=== PATIENT | female | born 1980 | race African-American/Black ===

== ENCOUNTER 2017-05-09 21:01 | Emergency (ER) | payer OTHER | END 2017-05-09 22:42 | disposition home or self-care (01) | LOC: ERS 21:01 | DX: K04.7 Periapical abscess without sinus (principal); J45.909 Unspecified asthma, uncomplicated; E78.5 Hyperlipidemia, unspecified; G43.909 Migraine, unspecified, not intractable, without status migrainosus; F17.210 Nicotine dependence, cigarettes, uncomplicated | CPT/HCPCS: 99282 ==

== ENCOUNTER 2017-07-05 16:21 | Emergency (ER) | payer OTHER ==
[2017-07-05] MEDS ORDERED: Ketorolac Tromethamine 30 MG/ML VIAL ONE (17:59)
== END 2017-07-05 18:21 | disposition home or self-care (01) ==
LOC: ERS 16:21
DX: M19.042 Primary osteoarthritis, left hand (principal); M19.041 Primary osteoarthritis, right hand; E05.90 Thyrotoxicosis, unspecified without thyrotoxic crisis or storm; J45.909 Unspecified asthma, uncomplicated; G43.909 Migraine, unspecified, not intractable, without status migrainosus; F31.9 Bipolar disorder, unspecified; F41.9 Anxiety disorder, unspecified; F17.210 Nicotine dependence, cigarettes, uncomplicated
CPT/HCPCS: 96372; J1885

== ENCOUNTER 2017-07-26 17:06 | Inpatient (IN) | payer OTHER, SELFPAY ==
[~2017-07-26 17:06] MED LIST: ISOVUE-370 76%-LOCM 1 ML ONE
[2017-07-26 17:41] LABS: #Basophils 0.1 thou/uL (0.0-0.2); #Lymphocytes 1.8 thou/uL (1.20-3.40); #Monocytes 0.9 thou/uL (0.11-0.59); #Neutrophils 10.8 thou/uL (1.40-6.50); %Basophils 0.5 % (0.0-1.0); %Eosinophils 0.1 % (0.0-10.0); %Lymphocytes 13.4 % (21.0-51.0); %Monocytes 6.3 % (0.0-10.0); %Neutrophils 79.8 % (42.0-75.0); Hemoglobin 11.4 g/dL (12.0-16.0); Mean Corpuscular HGB CONC 33.3 g/dL (32.0-36.0); Mean Corpuscular Hemoglobin 30.8 pg (27.0-31.0); Mean Corpuscular Volume 92.6 fl (81.0-99.0); Mean Platelet Volume 6.9 fL (7.4-10.4); Platelet Count 393 thou/uL (130-400); RBC Distribution Width 11.5 % (11.5-14.5); Red Blood Cell (RBC) Count 3.72 mill/uL (4.20-5.40); White Blood Cell (WBC) Count 13.5 thou/uL (4.8-10.8)
[2017-07-26 17:43] LABS: Bilirubin Negative (Negative); Blood, Urine Large (Negative); Clarity CLOUDY (Clear); Glucose, Urine (Dipstick) Negative (Negative); Leukocyte Small (Negative); Nitrite Negative (Negative); Protein, Urine (Dipstick) 30 mg/dL (Neg-Trace); Specific Gravity, Urine 1.023 (1.002-1.036); pH, Urine 6.5 (5.0-9.0)
[2017-07-26 17:45] LABS: Bacteria/HPF Rare-Few HPF (None Seen); Pathc Cast-AUWi Flag 1.35 (0-2.49)
[2017-07-26 17:46] LABS: Pregnancy Test - Urine (BHCG) Negative (Negative); Pregu Control Background? CLEAR/WHITE (CLR/WHITE); Pregu Control Bar Appear? YES (CONTROL BAR); Specific Gravity 1.023 (1.002-1.036); Yeast-AUWi Flag 124.5 (0-25.0)
[2017-07-26 17:54] LABS: Hyaline Casts/LPF 0-3 HYALINE CAST LPF (0-3 Hyaline); RBC/HPF 21-50 HPF (0-3); Renal Epithelial None Seen HPF (0-3); Transitional Epithelial NONE SEEN HPF (0-3); Yeast-All Forms None Seen HPF (None Seen)
[2017-07-26 18:08] LABS: ALT (SGPT) 14 U/L (8-55); AST (SGOT) 17 U/L (5-34); Albumin 3.8 g/dL (3.5-5.0); Alkaline Phosphatase 87 U/L (40-150); Anion Gap 10 mmol/L (10-20); BUN (Urea Nitrogen) 6 mg/dL (7.0-18.7); Bilirubin, Total 0.9 mg/dL (0.2-1.2); Calc. Creatinine Clearance 0 mL/min (70-130); Calcium 9.3 mg/dL (7.8-10.44); Carbon Dioxide 29 mmol/L (22-29); Chloride 99 mmol/L (98-107); Estimated GFR-MDRD Greater than 90; Globulin 3.9 g/dL (2.4-3.5); Glucose 99 mg/dL (70-105); Potassium 3.3 mmol/L (3.5-5.1); Protein, Total 7.7 g/dL (6.0-8.3); Sodium 135 mmol/L (136-145)
[2017-07-26] MEDS ORDERED: Potassium Chloride 20 MEQ TAB ONE (19:38)
[2017-07-26] MEDS ORDERED: Magnesium Citrate 300 ML BOT ONE (19:38)
[2017-07-26] MEDS ORDERED: metroNIDAZOLE 500 MG in Premix Bag 1 BAG IVPB SCH (22:00)
--- NOTE | 2017-07-26 22:01 | PDOC.EVN ---
Event Note - Event Note Event Note: [employer]SE History and Physical @2200: Called by ER for admission for possible TOAs HPI: 36 yo with prior CS x3 (no BTL) presents to ED with C/O LAP. No fever or issues. CT in ER by ER MD revealed possible 3cm bilateral TOAs. Review of systems: states ? HX of seizures but not on meds, possible CHTN as well. Asthma. Possible hyperthyroidism. Allergies: NONE Past med HX: "SZ" in past, hyperthyroid but not on meds. Asthma- on MDI Meds: only asthma MDIs. Surg Hx: CS x3 PE: Afebrile in ER NAD Abd soft NT no dsch reported Labs with 13 WBC, UA with small LE GC/CHL PCR pending Urine culture pending Pelvic sono pending Influ screen negative. Assessment: Possible bilateral TOAs on CT..exam benign. Plan: Admit to [employer] floor with: 1. GC/Chl requested by me from ER provider 2. Send Urine culture 3. Check TSH for questionable HX 4. IV Rocephin and Zmax 1 gram po X1 to be given in ED, then continue ABX with Rocephin, doxy and flagyl 5. Get pelvic sono 6. IVFs
--- NOTE | 2017-07-26 22:02 | CT ---
CT ABDOMEN AND PELVIS WITH IV CONTRAST 07/26/17 HISTORY: Abdominal pain and constipation which has worsened over the last four days. Patient unable to eat ove r the last two days and has nausea. COMPARISON: Noncontrast CT abdomen and pelvis on 06/15/13. FINDINGS: There are two hypodense lesions within the posterior segment of the right hepatic lobe measuring 1.8 cm and 1.2 cm respectively. Each of these lesions demonstrate suggestion of peripheral nodular and di scontinuous enhancement are probably related to small hemangiomas. However, these lesions were not mu ch smaller in size on the prior study in 2013 and were not well seen on the prior noncontrasted CT ex am. There is a tiny subcentimeter too small to characterize hypodense lesion more inferior aspect of the right hepatic lobe. The lung bases, spleen, pancreas, bilateral adrenal glands, kidneys, abdominal aorta, and urinary isaura dder demonstrate a normal CT appearance. There is a heterogeneous mass in the uterine fundus measuring 3.3 cm probably related to a uterine fi broid. Posterior to the uterus and each adnexal region, there are tubular low density serpiginous str uctures with enhancement of the schultz of these structures. The largest dilated tubular structure virginia ures approximately 3 cm in diameter. There is mild inflammatory stranding seen in the region of these tubular collections, again, majority of which are posterior to the uterus in the region of the cul-d e-sac. The findings may be related to bilateral tubo-ovarian abscesses. The appendix is visualized and normal in caliber. A moderate amount of retained fecal material is se en in the colon. IMPRESSION: 1. Evidence for bilateral tubo-ovarian abscesses. While findings could be related to hydrosalpin x, the schultz of these tubular structures do demonstrate mild enhancement and there is mild adjacent i nflammatory stranding in the pelvis. This does not appear to represent complex cystic ovarian lesions . 2. Heterogeneous mass uterine fundus likely related to fibroid uterus. 3. Low density lesions in the right hepatic lobe most likely related to mild enlargement of kayla ngiomas since study in 2013. However, to confirm these low density lesions represent hemangiomas, a f ollowup CT scan examination of the abdomen following hemangioma protocol is recommended. 4. Constipation. 5. Above findings discussed with Dr. Rodriguez in the Emergency Department on 07/26/17 at 2107 hour s. POS: [facility]
[2017-07-26] MEDS ORDERED: Ketorolac Tromethamine 30 MG/ML VIAL ONE ×3 (23:03→23:06)
[2017-07-26] MEDS ORDERED: Azithromycin 250 MG TAB ONE ×2 (23:05→23:24)
--- NOTE | 2017-07-26 23:22 | ULT ---
PELVIC ULTRASOUND 07/26/17 HISTORY: Pelvic pain for five days, nausea and constipation. Abnormal CT examination. FINDINGS: Multiple transabdominal and endovaginal sonographic images of the pelvis are obtained. The uterus measures 10.6 cm x 5 cm x 6.3 cm. There is a heterogeneous mass in the uterine fundus virginia uring 2.3 cm likely related to a uterine fibroid. The endometrial strip measures 0.9 cm in thickness. The ovaries are difficult to definitely visualize as there is a tubular anechoic structure with inte rnal echogenic material seen within the right adnexal region and a complex mass-like structure within the left adnexal region. What is thought to be the right ovary measures 4 cm x 1.9 cm x 2.3 cm. The left ovary is enlarged with several cystic structures seen measuring 7.1 cm x 4.1 cm x 6.9 cm. Findin gs on recent CT scan examination demonstrated this complex cystic structure to appear to represent a tubular fluid filled structure, the findings may be related to bilateral tubo-ovarian abscesses as no jaylan on the CT scan examination. One of the cystic structures within the left adrenal region has compl ex internal echogenic material and measures 3.3 cm in maximal dimension. Doppler evaluation of each ovary with spectral analysis and color flow evaluation does demonstrate ar terial flow. Tiny amount of free fluid is seen adjacent to the presumed right fallopian tube. IMPRESSION: 1. Complex multicystic appearing structure in left adnexal region which corresponds to findings on CT exam. However, there were findings on CT examination which suggested a dilated tubular structur e which could be related to pyosalpinx and tubo-ovarian abscess in the left adnexal region. There is a dilated tubular structure in the right adnexal region also which may be related to tubo-ovarian abs cess. 2. Uterine fibroid. POS: [facility]
--- NOTE | 2017-07-26 23:30 | PDOC.EVN ---
Event Note - Event Note Event Note: WET PREP CHECK: Lab returned with positive trich and BV on VP3 test. Flagyl ordered as part of her IV therapy already. Will order HIV and RPR
[2017-07-27 00:10] LABS: HIV (1/2) Antibody/Antigen Non-Reactive (NonReactive); HIV 1/2 INDEX 0.07 S/CO (<1.00)
[2017-07-27 00:11] LABS: Syphilis Antibody Nonreactive (Nonreactive); Syphilis Antibody Index 0.08 S/CO (<1.00 Non-Reactive)
--- NOTE | 2017-07-27 00:57 | PDOC.EVN ---
Event Note - Event Note Event Note: Lab check: HIV and RPR negative. TSH low at 0.2. She has a HX of hyperthyroidism...not on meds.Needs endo follow up.
--- NOTE | 2017-07-27 00:59 | PDOC.EVN ---
Event Note - Event Note Event Note: Sono with Ut fibroid and L>R evidence of possible TOA. Continue antibiotics
[2017-07-27] MEDS: cefTRIAXone\\ROCEPHIN 2 GM in Sodium Chloride 0.9% 100 ML IVPB SCH ×2 (01:26→22:07)
[2017-07-27] MEDS ORDERED: Sodium Chloride 0.9% 10 ML ONE (01:31)
[2017-07-27] MEDS: Lactated Ringer's 1,000 ML IV SCH ×4 (01:35→22:21)
[2017-07-27] MEDS: metroNIDAZOLE 500 MG in Premix Bag 1 BAG IVPB SCH ×3 (01:36→18:41)
[2017-07-27 02:25] VITALS: BMI 21.4
[2017-07-27] MEDS: Ibuprofen 800 MG TAB PO PRN ×2 (04:41→14:04)
--- NOTE | 2017-07-27 06:24 | PDOC.EVN ---
Event Note - Event Note Event Note: @0620: Progress Note HD0 to 1 No new issues Vitals: afebrile and normotensive GC/CHL pending Free t4 was normal Meds: Rocephin/doxy/flagyl Assessment/Plan: Suspected bilateral TOAs, Trich on VP3 1. continue antibiotics 2. Check Gc/Chl 3. Free T4 is normal so only subclinicaly hyperthyroidism (low tsh)
[2017-07-27] MEDS: Doxycycline 100 MG CAP PO SCH ×2 (09:28→22:07)
[2017-07-27] MEDS ORDERED: HYDROcodone/Acetaminophen 7.5/325 mg Tablet PO PRN (21:45)
[2017-07-27] MEDS ORDERED: diphenhydrAMINE 50 MG/ML VIAL IVP SCH (22:00)
[2017-07-27] MEDS: HYDROcodone/Acetaminophen 5/325 mg Tablet PO PRN (22:06)
[2017-07-28] MEDS: metroNIDAZOLE 500 MG in Premix Bag 1 BAG IVPB SCH ×3 (03:20→18:10)
[2017-07-28 03:21] LABS: Chlamydia by PCR Not Detected (NotDetected); GC by PCR Not Detected (NotDetected)
[2017-07-28 05:56] LABS: #Monocytes 0.9 thou/uL (0.11-0.59); #Neutrophils 9.4 thou/uL (1.40-6.50); %Basophils 0.1 % (0.0-1.0); %Eosinophils 0.1 % (0.0-10.0); %Lymphocytes 8.9 % (21.0-51.0); %Monocytes 7.9 % (0.0-10.0); Hemoglobin 9.5 g/dL (12.0-16.0); Mean Corpuscular HGB CONC 32.9 g/dL (32.0-36.0); Mean Corpuscular Hemoglobin 30.5 pg (27.0-31.0); Mean Corpuscular Volume 92.9 fl (81.0-99.0); Mean Platelet Volume 7.1 fL (7.4-10.4); Platelet Count 354 thou/uL (130-400); RBC Distribution Width 11.7 % (11.5-14.5); White Blood Cell (WBC) Count 11.3 thou/uL (4.8-10.8)
--- NOTE | 2017-07-28 06:55 | PRG ---
DATE OF SERVICE: 07/28/2017 SUBJECTIVE: The patient is a 36-year-old female who presented approximately 24 hours ago with abdomi nal pain and was noted on evaluation to have what appears to be bilateral tubo-ovarian abscesses on u ltrasound and CT scan. The patient was placed on antibiotics, Rocephin, doxycycline, and Flagyl. Th e patient reports this morning that her pain has improved some. She denies any subjective fevers. PHYSICAL EXAMINATION: VITAL SIGNS: Temperature 99.2, pulse of 88, respiratory rate of 18. Her T-max over the last 24 hour s is 99.2. GENERAL: She appears to be in no acute distress. She is alert and oriented, and cooperative and ple asant to interact with. HEENT: Normocephalic, atraumatic. ABDOMEN: Soft, but tender to light and deep palpation. LABORATORY STUDIES: CBC today, white count 11.3, hemoglobin 9.5, hematocrit 28.8, platelets of 354,0 00. There is a left shift of 83% neutrophils. GC and chlamydia are back and are negative. ASSESSMENT AND PLAN: The patient is a 36-year-old female diagnosed with bilateral tubo-ovarian absce sses, positive for Trichomonas and BV, negative for gonorrhea and chlamydia. She has been on antibio tics for now 24 hours and is having some subjective improvement in her pain. We will continue antibi otics for at least another 24 hours and at that time likely we will reevaluate by ultrasound on the p rogress of these pelvic structures.
[2017-07-28] MEDS: Lactated Ringer's 1,000 ML IV SCH ×3 (07:19→23:28)
[2017-07-28] MEDS: Doxycycline 100 MG CAP PO SCH ×2 (09:41→21:30)
[2017-07-28] MEDS: HYDROcodone/Acetaminophen 5/325 mg Tablet PO PRN (12:21)
[2017-07-28] MEDS: Ibuprofen 800 MG TAB PO PRN (12:22)
[2017-07-28] MEDS ORDERED: PROVENTIL INHALER 6.7 G (200 INHALATIONS) INH PRN (12:44)
[2017-07-28] MEDS ORDERED: Ondansetron HCl/PF 4 MG in Sodium Chloride 0.9% 50 ML IVPB PRN (20:19)
[2017-07-28] MEDS ORDERED: Sodium Chloride 0.9% 10 ML ONE (20:33)
[2017-07-28] MEDS: Ondansetron HCl/PF 4 MG/2 ML Vial SLOW IVP PRN (20:38)
[2017-07-28] MEDS: cefTRIAXone\\ROCEPHIN 2 GM in Sodium Chloride 0.9% 100 ML IVPB SCH (23:29)
[2017-07-29] MEDS: metroNIDAZOLE 500 MG in Premix Bag 1 BAG IVPB SCH (02:35)
[2017-07-29] MEDS: Lactated Ringer's 1,000 ML IV SCH ×2 (03:10→06:11)
[2017-07-29] MEDS: Ibuprofen 800 MG TAB PO PRN ×2 (06:14→17:19)
[2017-07-29 07:59] LABS: Band 9 % (5-11); Hemoglobin 8.8 g/dL (12.0-16.0); Lymphocytes 14 % (21-51); MDiff Complete? YES; Mean Corpuscular HGB CONC 31.9 g/dL (32.0-36.0); Mean Corpuscular Hemoglobin 29.6 pg (27.0-31.0); Mean Corpuscular Volume 92.7 fl (81.0-99.0); Mean Platelet Volume 6.9 fL (7.4-10.4); Monocytes 6 % (0-10); Neutrophil 71 % (42-75); Platelet Count 357 thou/uL (130-400); RBC Distribution Width 11.7 % (11.5-14.5); Red Blood Cell (RBC) Count 2.97 mill/uL (4.20-5.40)
[2017-07-29] MEDS: Ondansetron HCl/PF 4 MG/2 ML Vial SLOW IVP PRN ×2 (08:35→20:20)
--- NOTE | 2017-07-29 08:52 | PRG ---
DATE OF SERVICE: 07/29/2017 SUBJECTIVE: This patient is a 36-year-old black female who was admitted almost 48 hours ago with abd ominal pain from the ER. Imaging there both by CT and then by ultrasound was consistent with bilater al tubo-ovarian abscesses. Since that time, she has been placed on IV Rocephin, Flagyl, and doxycycl ine. She has been tolerating the doxycycline by mouth. In visiting with her this morning, she says that she does feel better. She is tolerating a regular diet. OBJECTIVE: VITAL SIGNS: Stable and she is afebrile. Her temperature is 99, her pulse is in the 70s. Her T-max over the last 24 hours was 103.1 at noon yesterday. GENERAL: She is comfortable. She is alert and oriented, and she is cooperative with exam. ABDOMEN: Soft. There is no guarding or rebound this morning. LABORATORY DATA: CBC yesterday morning showed a white count of 20,000. I did review her laboratorie s, her GC and chlamydia did return negative. ASSESSMENT AND PLAN: Tubo-ovarian abscess, currently on antibiotics with a temperature spike to 103 yesterday at noon. Since that time, she appears to have a defervescing course. We will continue the Rocephin IV, but I have changed her Flagyl to p.o. to see how she will tolerate this. Another CBC h as been ordered. We will continue her antibiotics using this regimen for at least 48 hours afebrile. She will be watched closely.
[2017-07-29] MEDS: metroNIDAZOLE 500 MG TAB PO SCH ×3 (09:04→20:13)
[2017-07-29] MEDS: Doxycycline 100 MG CAP PO SCH ×2 (09:04→20:13)
[2017-07-29 09:06] LABS: #Lymphocytes 1.9 thou/uL (1.20-3.40); #Monocytes 1.1 thou/uL (0.11-0.59); #Neutrophils 14.4 thou/uL (1.40-6.50); %Eosinophils 0.2 % (0.0-10.0); %Monocytes 6.4 % (0.0-10.0); %Neutrophils 82.4 % (42.0-75.0); Hemoglobin 8.9 g/dL (12.0-16.0); Mean Corpuscular HGB CONC 32.5 g/dL (32.0-36.0); Mean Corpuscular Hemoglobin 30.1 pg (27.0-31.0); Mean Corpuscular Volume 92.6 fl (81.0-99.0); Mean Platelet Volume 6.7 fL (7.4-10.4); Platelet Count 345 thou/uL (130-400); RBC Distribution Width 11.8 % (11.5-14.5); Red Blood Cell (RBC) Count 2.94 mill/uL (4.20-5.40); White Blood Cell (WBC) Count 17.4 thou/uL (4.8-10.8)
[2017-07-29] MEDS ORDERED: Docusate 100 MG CAP PO SCH (21:30)
[2017-07-29] MEDS: cefTRIAXone\\ROCEPHIN 2 GM in Sodium Chloride 0.9% 100 ML IVPB SCH (21:55)
[2017-07-30 05:34] LABS: #Lymphocytes 2.2 thou/uL (1.20-3.40); #Monocytes 0.9 thou/uL (0.11-0.59); %Basophils 0.2 % (0.0-1.0); %Eosinophils 0.2 % (0.0-10.0); %Lymphocytes 15.5 % (21.0-51.0); %Monocytes 6.4 % (0.0-10.0); %Neutrophils 77.6 % (42.0-75.0); Hemoglobin 9.2 g/dL (12.0-16.0); Mean Corpuscular HGB CONC 32.6 g/dL (32.0-36.0); Mean Corpuscular Hemoglobin 30.4 pg (27.0-31.0); Mean Corpuscular Volume 93.3 fl (81.0-99.0); Mean Platelet Volume 6.8 fL (7.4-10.4); Platelet Count 387 thou/uL (130-400); RBC Distribution Width 11.8 % (11.5-14.5); Red Blood Cell (RBC) Count 3.01 mill/uL (4.20-5.40); White Blood Cell (WBC) Count 14.2 thou/uL (4.8-10.8)
--- NOTE | 2017-07-30 07:00 | PRG ---
DATE OF SERVICE: 07/30/2017 SUBJECTIVE: The patient is feeling much better this morning. She is tolerating a regular diet and a mbulating. She is able to tolerate both the doxycycline and the Flagyl orally. She continues on IV Rocephin. OBJECTIVE: VITAL SIGNS: Last significant temperature was 103.1 at noon on 07/28/2017. T-max over the last 24 h ours is 98.7. Temperature now is 98.2, pulse is 73, blood pressure is 96/46. ABDOMEN: Shows no guarding or rebound. GENERAL: There is no acute distress. LABORATORY DATA: This morning, white count is down to 14.2, hemoglobin 9.2, hematocrit 28.1, platele ts are 387. ASSESSMENT: Tubo-ovarian abscess, currently on IV Rocephin, oral doxycycline and oral Flagyl. She i s tolerating oral component of her therapy. She has improved over the last 24 hours. PLAN: We would continue the IV Rocephin for 48-72 hours afebrile and then at that time, convert her over to oral medications.
[2017-07-30] MEDS: Docusate 100 MG CAP PO SCH ×2 (08:29→21:49)
[2017-07-30] MEDS: metroNIDAZOLE 500 MG TAB PO SCH ×3 (08:29→21:49)
[2017-07-30] MEDS: Doxycycline 100 MG CAP PO SCH ×2 (08:29→21:49)
[2017-07-30] MEDS: Ibuprofen 800 MG TAB PO PRN ×2 (10:45→21:54)
[2017-07-30] MEDS: cefTRIAXone\\ROCEPHIN 2 GM in Sodium Chloride 0.9% 100 ML IVPB SCH (21:49)
--- NOTE | 2017-07-31 07:38 | PRG ---
DATE OF SERVICE: 07/31/2017 TIME OF SERVICE: 0715 HISTORY OF PRESENT ILLNESS: The patient is now day 5 of hospitalization. She was admitted late on 0 07/26/2017 with bilateral tubo-ovarian abscesses and is on Rocephin, Flagyl and doxy. She had a T-max of 103 on 07/28/2017. T-max yesterday was 100.6 at 1100. The patient's white count yesterday was 1 4,000, down from a max of 20,000. The patient is currently resting comfortably. PHYSICAL EXAMINATION: ABDOMEN: Soft, without rebound or guarding. She has no distention. Upon questioning the patient, she states that she is feeling significantly better. She states that u gina admission her p.o. pain was a 9-10 on a scale 1-10 and now it is a 3-4. IMPRESSION: CT and ultrasound results consistent with bilateral tubo-ovarian abscesses in a 36-year- old now on day 5 of Rocephin, Flagyl and doxycycline with slow improvement in fever curve, more remar kable improvement in pain. PLAN: We will repeat CBC and base met this morning and repeat CT scan to compare to 5 days ago after those two laboratories are done. If the patient's fever curve continues down, may be a candidate fo r discharge home on Augmentin and Flagyl in 24-48 hours. Plan of care discussed with the patient. P patel of care will be discussed with Dr. Riggins taking over as OB Hospitalist today.
[2017-07-31 07:42] LABS: Anion Gap 10 mmol/L (10-20); BUN (Urea Nitrogen) 7 mg/dL (7.0-18.7); Calc. Creatinine Clearance 102 mL/min (70-130); Calcium 8.5 mg/dL (7.8-10.44); Carbon Dioxide 29 mmol/L (22-29); Chloride 100 mmol/L (98-107); Estimated GFR-MDRD Greater than 90; Glucose 78 mg/dL (70-105); Potassium 3.4 mmol/L (3.5-5.1); Sodium 136 mmol/L (136-145)
[2017-07-31 08:58] LABS: Band 5 % (5-11); Eosinophils 1 % (0-10); Hemoglobin 9.2 g/dL (12.0-16.0); Lymphocytes 9 % (21-51); MDiff Complete? YES; Mean Corpuscular Hemoglobin 30.6 pg (27.0-31.0); Mean Corpuscular Volume 92.8 fl (81.0-99.0); Mean Platelet Volume 6.7 fL (7.4-10.4); Monocytes 6 % (0-10); Neutrophil 79 % (42-75); Platelet Count 439 thou/uL (130-400); RBC Distribution Width 11.9 % (11.5-14.5); Red Blood Cell (RBC) Count 3.02 mill/uL (4.20-5.40); White Blood Cell (WBC) Count 14.3 thou/uL (4.8-10.8)
[2017-07-31] MEDS: Docusate 100 MG CAP PO SCH ×2 (09:07→22:22)
[2017-07-31] MEDS: metroNIDAZOLE 500 MG TAB PO SCH ×3 (09:07→22:22)
[2017-07-31] MEDS: Doxycycline 100 MG CAP PO SCH ×2 (09:09→22:23)
[2017-07-31] MEDS ORDERED: Fluconazole 100 MG TAB PO SCH (10:00)
[2017-07-31] MEDS ORDERED: Iopamidol 370 76% 50 ML VIAL FS ONE (13:20)
[2017-07-31] MEDS ORDERED: Iopamidol 370 76% 100 ML VIAL ONE (13:20)
--- NOTE | 2017-07-31 14:59 | CT ---
CT OF THE ABDOMEN AND PELVIS WITH IV AND ENTERIC CONTRAST: INDICATION: Followup tubo-ovarian abscess. COMPARISON: Prior exam dated 07/16/[address] examination without contrast dated 06/15/13. FINDINGS: The loculated fluid collection seen within the lower left hemipelvis is slightly decreased in size. This previously measured 7.5 cm and now measuring 7.2 cm. The extent of the suspected hydrosalpinx o r pyosalpinx is slightly less prominent. There is persistent edema and inflammatory infiltration see n within the lower pelvis. Fibroid uterus is similar-appearing. There is a prominent amount of pilar ined stool within the colon which is similar to the prior exam. Enhancing lesions of the liver appea r similar. Pancreas, adrenal glands, spleen, and kidneys appear within normal limits. There are ap tty-appearing lymph nodes seen within the retroperitoneal region, particularly in the periaortic loca tion that are stable. No definite acute osseous abnormality is evident. IMPRESSION: 1. Some interval improvement in the tubo-ovarian abscess involving the lower pelvis. Continued foll owup is recommended. 2. Heterogeneous enhancing lesions of the liver incompletely evaluated on today's exam. Followup MR I with hemangioma protocol is recommended. 3. A moderate amount of retained stool within the colon. 4. Fibroid uterus. POS: [facility]
[2017-07-31] MEDS: cefTRIAXone\\ROCEPHIN 2 GM in Sodium Chloride 0.9% 100 ML IVPB SCH (22:19)
--- NOTE | 2017-08-01 08:14 | PRG ---
DATE OF SERVICE: 08/01/2017 HISTORY OF PRESENT ILLNESS: The patient is a 36-year-old female who was admitted for bilateral tubo- ovarian abscesses and placed on Rocephin, doxycycline and Flagyl. Today is day 7 of her admission. The patient reports that pain has been getting better and has minimal to zero pain now. She is quite nauseous, was quite nauseous yesterday after taking the p.o. contrast for a CT scan and continues to feel a little bit nauseous this morning. Otherwise, the patient has no complaints. PHYSICAL EXAMINATION: VITAL SIGNS: Temperature 98.9, pulse 70, respiratory rate 16, blood pressure 107/46. Her T-max yest erday was 99.8. GENERAL: This morning she appears to be in no acute distress. She is alert and oriented, and laurie ative and pleasant to interact with. ABDOMEN: Soft and nontender to palpation. A CT scan yesterday demonstrated slight interval improvement on findings in the pelvis. ASSESSMENT AND PLAN: The patient is a 36-year-old female admitted for medical management of bilatera l tubo-ovarian abscesses on Rocephin, Flagyl and doxycycline. The patient remains afebrile and does show some slight interval improvement and clinically appears to be better, much improved. PLAN: The plan at this time would be to continue IV antibiotics for another 24 hours and then consid er discharge tomorrow on p.o. Augmentin and Flagyl.
[2017-08-01] MEDS: Docusate 100 MG CAP PO SCH ×2 (08:56→21:06)
[2017-08-01] MEDS: Doxycycline 100 MG CAP PO SCH ×2 (08:56→21:05)
[2017-08-01] MEDS: Floranex Packet PO SCH (08:56)
[2017-08-01] MEDS: metroNIDAZOLE 500 MG TAB PO SCH ×3 (08:56→21:06)
[2017-08-01] MEDS ORDERED: Ondansetron ODT 4 MG TAB PO PRN (22:51)
[2017-08-01] MEDS: cefTRIAXone\\ROCEPHIN 2 GM in Sodium Chloride 0.9% 100 ML IVPB SCH (23:16)
--- NOTE | 2017-08-02 06:14 | PRG ---
DATE OF SERVICE: 08/02/2017 SUBJECTIVE: The patient feels much better. She had some intermittent nausea after doxycycline over the last 24 hours, but otherwise feels well and wants to go home. OBJECTIVE: VITAL SIGNS: Stable. T-max 99. She has remained afebrile. ABDOMEN: Soft and nontender. There is no guarding or rebound. ASSESSMENT: Resolving tubo-ovarian abscesses. PLAN: At this time, the disposition is to allow her to be discharged. Her IV Rocephin and doxycycline will be discontinued and she will be sent home on Augmentin 500 t.i.d. x14 days as well as Flagyl 500 mg b.i.d. for 14 days. I have asked her to follow up at [facility] at that time for review. She was given complete discharge instructions and she was also given a prescription for iron one tablet a day, #30 with 2 refills. She voiced understanding of her discharge instructions and was sent home in good condition. MICHAEL
--- NOTE | 2017-08-02 06:29 | DIS ---
DATE OF ADMISSION: 07/26/2017 DATE OF DISCHARGE: 08/02/2017 ADMITTING PHYSICIAN: Issa Gutierrez M.D. DISCHARGING PHYSICIAN: Jeff Patino M.D. BRIEF HISTORY/HOSPITAL COURSE: Ms. Green is a 36-year-old black female who presented to the emergency room complaining of abdominal pain. Findings at that time were consistent with an elevated white count and both CT and ultrasound that showed bilateral tubo-ovarian abscesses. She was started on IV antibiotics in the form of Rocephin, doxycycline, and Flagyl. She responded slowly throughout her course and had a slowly decreasing white count. She was sent home on the after remaining afebrile for well over 72 hours and had marked clinical improvement. She was asked to follow up at [facility] in 1 week and was sent home on Augmentin 500 t.i.d. for 14 days as well as Flagyl 500 mg p.o. b.i.d. for 14 days. She was also given a prescription for iron 1 tablet a day, #30 with 2 refills. She voiced understanding of her discharge instructions and was sent home in good condition. MICHAEL
[2017-08-02 08:00] VITALS: BP 87/43; TEMP 98.8
[2017-08-02] MEDS: metroNIDAZOLE 500 MG TAB PO SCH (08:57)
[2017-08-02] MEDS: Floranex Packet PO SCH (08:57)
[2017-08-02] MEDS: Docusate 100 MG CAP PO SCH (08:57)
[2017-08-02] MEDS: Doxycycline 100 MG CAP PO SCH (10:24)
== END 2017-08-02 11:25 | disposition home or self-care (01) | DRG 758 ==
LOC: ERS 17:06 → 3SW 22:10
PROVIDERS: ADMIT Obstetrics & Gynecology; ATTEND Obstetrics & Gynecology
DX: N76.0 Acute vaginitis (principal); N70.03 Acute salpingitis and oophoritis; A59.9 Trichomoniasis, unspecified; J45.909 Unspecified asthma, uncomplicated; E05.90 Thyrotoxicosis, unspecified without thyrotoxic crisis or storm; F17.210 Nicotine dependence, cigarettes, uncomplicated
CPT/HCPCS: 36415; 74177; 76856; 80048; 80053; 81003; 81015; 81025; 83605; 83690; 84439; 84443; 85025; 86780; 87086; 87389; 87480; 87491; 87510; 87591; 87660; 96361; 96365; 96375; A4216; J0696; J1200; J1885; J2405; J7050; Q0162

== ENCOUNTER 2017-10-12 10:56 | Emergency (ER) | payer OTHER | END 2017-10-12 11:41 | disposition home or self-care (01) | LOC: ERS 10:56 | DX: K03.81 Cracked tooth (principal); K02.9 Dental caries, unspecified; J45.909 Unspecified asthma, uncomplicated; E05.90 Thyrotoxicosis, unspecified without thyrotoxic crisis or storm; G43.909 Migraine, unspecified, not intractable, without status migrainosus; F31.9 Bipolar disorder, unspecified; F41.9 Anxiety disorder, unspecified; F17.210 Nicotine dependence, cigarettes, uncomplicated; Z71.6 Tobacco abuse counseling | CPT/HCPCS: 99406 ==

== ENCOUNTER 2017-12-27 12:03 | Inpatient (IN) | payer OTHER ==
[2017-12-27 12:44] LABS: #Lymphocytes 1.3 thou/uL (1.20-3.40); #Monocytes 0.4 thou/uL (0.11-0.59); #Neutrophils 7.2 thou/uL (1.40-6.50); %Basophils 0.3 % (0.0-1.0); %Lymphocytes 14.7 % (21.0-51.0); %Monocytes 4.3 % (0.0-10.0); %Neutrophils 80.6 % (42.0-75.0); Hemoglobin 11.1 g/dL (12.0-16.0); Mean Corpuscular HGB CONC 33.9 g/dL (32.0-36.0); Mean Corpuscular Hemoglobin 29.1 pg (27.0-31.0); Mean Corpuscular Volume 85.9 fL (78.0-98.0); Mean Platelet Volume 7.3 fL (7.4-10.4); Platelet Count 331 thou/uL (130-400); RBC Distribution Width 13.1 % (11.5-14.5); Red Blood Cell (RBC) Count 3.81 mill/uL (4.20-5.40)
[2017-12-27] MEDS ORDERED: Acetaminophen 500 MG TAB ONE (12:44)
[2017-12-27] MEDS ORDERED: Ondansetron HCl/PF 4 MG/2 ML Vial ONE (12:44)
[2017-12-27] MEDS ORDERED: Iopamidol 370 76% 50 ML VIAL FS ONE (12:53)
[2017-12-27] MEDS ORDERED: ISOVUE-370 76%-LOCM 1 ML ONE (12:53)
[2017-12-27 13:03] LABS: Bilirubin Negative (Negative); Blood, Urine Moderate (Negative); Clarity CLEAR (Clear); Glucose, Urine (Dipstick) Negative (Negative); Leukocyte Small (Negative); Nitrite Negative (Negative); Protein, Urine (Dipstick) Negative (Neg-Trace)
[2017-12-27 13:05] LABS: Pregnancy Test - Urine (BHCG) Negative (Negative); Pregu Control Background? CLEAR/WHITE (CLR/WHITE); Pregu Control Bar Appear? YES (CONTROL BAR); Specific Gravity 1.028 (1.002-1.036)
[2017-12-27 13:07] LABS: ALT (SGPT) 8 U/L (8-55); AST (SGOT) 15 U/L (5-34); Albumin 4.2 g/dL (3.5-5.0); Alkaline Phosphatase 77 U/L (40-150); Anion Gap 14 mmol/L (10-20); BUN (Urea Nitrogen) 5 mg/dL (7.0-18.7); Bilirubin, Direct 0.4 mg/dL (0.1-0.3); Calc. Creatinine Clearance 0 mL/min (70-130); Calcium 9.3 mg/dL (7.8-10.44); Carbon Dioxide 24 mmol/L (22-29); Chloride 102 mmol/L (98-107); Estimated GFR-MDRD Greater than 90; Glucose 80 mg/dL (70-105); Lipase 7 U/L (8-78); Potassium 3.5 mmol/L (3.5-5.1); Protein, Total 7.3 g/dL (6.0-8.3); Sodium 136 mmol/L (136-145)
[2017-12-27 13:07] LABS: Bacteria/HPF None Seen HPF (None Seen); Hyaline Casts/LPF 0-3 HYALINE CAST LPF (0-3 Hyaline); Pathc Cast-AUWi Flag 0.14 (0-2.49); Squamous Epithelial 0-3 HPF (0-3); WBC/HPF 0-3 HPF (0-3)
--- NOTE | 2017-12-27 15:32 | CT ---
CT OF THE ABDOMEN AND PELVIS WITH CONTRAST: Comparison: 07-31-17, 07-26-17 History: Lower abdominal pain and left flank pain for 2-3 days. Fever with nausea and dysuria. Technique: Multiple contiguous axial images were obtained in a CT of the abdomen and pelvis with cont rast. Coronal reformats were performed. FINDINGS: There are two masses in the right lobe of the liver measuring up to 1.8 cm in size with peripheral pu ddling. These likely represent small hemangiomas. There is area of focal fatty infiltration adjacent to the falciform ligament. The gallbladder, kidneys, adrenal glands, spleen, and pancreas are unremar kable. No free air or stranding changes are seen in the abdomen or pelvis. There is a moderate amount of free fluid in the pelvis. There is a tubular appearing structure in the left adnexal region measuring 8 mm in width. This could represent enlargement of the left fallopian tube. The ovaries are difficult to visualize. No abdominal or pelvic lymphadenopathy are seen. The large and small bowel are unremarkable. The appe ndix is normal. Visualized inferior thorax and abdominal wall soft tissues are unremarkable. The bones are unremarkab le. IMPRESSION: There is a dilated tubular structure in the left adnexa which likely represents an enlarged fallopian tube. Given the free fluid in the abdomen/pelvis, pelvic inflammatory disease with early involvement of the left ovarian abscess is of radiologic concern. Please correlate with physical examination. POS: [facility]
--- NOTE | 2017-12-27 17:57 | ULT ---
PELVIC ULTRASOUND: 12/27/17 HISTORY: Pelvic pain, possible TOA. FINDINGS: The uterus measures 10.5 cm x 4.9 cm x 5.5 cm. The endometrial stripe measures 1.1 cm in thickness. T here is a heterogeneous mass seen within the uterine fundus which measures 3.1 cm in maximal dimensio n, also present on the prior study and is likely related to a uterine fibroid. There is a small amount of fluid seen within the endocervical canal. The right ovary measures 4.3 cm x 2.8 cm x 2.2 cm. There is an anechoic structure seen within the right ovary measuring 2.4 m demonst rating characteristics most compatible with a cyst. The left ovary measures 4.3 cm x 2.6 cm x 3.6 cm. The large cyst within the right ovary is smaller in size compared to study on 04/24/12. In addition, the tubular cystic appearing structure in the left adnexa on the prior exam is less prominent on today's exam. Although, there is heterogeneity in the l eft adnexal region with suggestion of heterogeneous tubular structure adjacent to the left ovary. The findings could be related to pelvic inflammatory disease and tubo-ovarian abscess cannot be entirely excluded. Doppler evaluation of each ovary with spectral analysis and color flow evaluation demonstrates arteri al flow. Small amount of free fluid is seen in the pelvis. IMPRESSION: 1. Tubular area of heterogeneity in the left adnexal region corresponding to recent CT scan exam ination. However, the tubular area demonstrated a more anechoic appearance on the prior study and the re is now a greater degree of heterogeneity on today's exam. Findings again may be related to pelvic inflammatory disease and tubo-ovarian abscess is a possibility as the schultz of this tubular structure on recent CT scan examination did demonstrate enhancement. 2. Right ovarian cyst. Cystic lesion within the right ovary is much smaller in size compared to prior ultrasound on 07/26/17. 3. Nonspecific fluid in the endocervical canal. 4. Uterine fibroid. 5. Small amount of free fluid in the pelvis. POS: [facility]
[2017-12-27] MEDS ORDERED: metroNIDAZOLE 500 MG in Premix Bag 1 BAG IVPB SCH (18:30)
[2017-12-27] MEDS ORDERED: cefOXitin 2 GM in Sodium Chloride 0.9% 100 ML IVPB SCH (18:45)
[2017-12-27] MEDS ORDERED: Azithromycin 250 MG TAB ONE (19:12)
--- NOTE | 2017-12-27 20:13 | PDOC.EVN ---
Event Note - Event Note Event Note: TSH ordered for HX hypothyroidism off meds
[2017-12-27] MEDS: Ibuprofen 800 MG TAB PO PRN (20:38)
[2017-12-27] MEDS: Sodium Chloride 0.9% 500 ML IV SCH (20:43)
--- NOTE | 2017-12-28 00:21 | HP ---
DATE OF ENCOUNTER: 12/27/2017 TIME OF ENCOUNTER: 1850 hours until 1910 hours. LOCATION: ER bed. REASON FOR EVALUATION/ADMISSION: Pelvic pain suspicious for pelvic inflammatory disease. HISTORY OF PRESENT ILLNESS: In brief, this is a 37-year-old -[place]izen [place] female who is a 4, para 3, SAB 1 with a history of 3 prior deliveries. Her LMP is 12/12/2017. She states that she was last sexually active around 2 months ago. She does do vaginal douches with last douche being early December after her last menstrual period. She also states a history of Trichomonas infection back in 07/2017, when she was treated for an episode of PID at this hospital location. She arrives now with an increased episode of left lower quadrant pain and subjective fevers at home. She denies nausea, vomiting, constipation or diarrhea. She denies any history of trauma. She denies any foreig n travel. REVIEW OF SYSTEMS: Complete review of systems was checked and is otherwise negative unless specified in the HPI. PAST MEDICAL HISTORY: 1. Asthma, but stable on Proventil. 2. Topical steroid cream for eczema. 3. History of possible hypothyroidism but not on medications as she was told "probably do not need i t." PAST SURGICAL HISTORY: x3. ALLERGIES: Several food items including GRADE FOOD, LEMON and CHENEGA, but no drug allergies. SOCIAL HISTORY: She is a smoker and drinks alcohol socially, but no drug use. PHYSICAL EXAMINATION: VITAL SIGNS: T-max in the ER was 101. Other vital signs are stable. Blood pressures 120s/70s. GENERAL: She is in no acute distress. ABDOMEN: Soft and nontender and nonsurgical. She does have tenderness to palpation of the lower john drants. PELVIC: Pelvic exam was performed by the ER physician who documented and felt that the patient had c ervical motion tenderness with abnormal vaginal discharge. LABORATORY SETS: Gonorrhea and chlamydia, PCR has been sent as well as a vaginitis panel. LABORATORY DATA: White blood cell count is 9, hematocrit is 32, platelets are normal at 331. Chemis tries are normal. Urine showed moderate blood, but otherwise normal except for small leukocyte joey ase. Urine bacteria was negative and urine test was negative. MEDICATIONS GIVEN IN THE ER: Include cefoxitin and oral Zithromax 1 gram p.o. x1. I have ordered Fl agyl 500 mg IV q.12 hours to begin on the floor. IMAGING: Patient had a CT and an ultrasound done which revealed no overt abnormalities except for so me fibroids and a possible small ovarian cyst on the left, but this was also noted in July with h er past exam and this is likely residual/chronic ovarian changes from the POA from July. ASSESSMENT: This is a patient who is a 37-year-old -[place]izen [place] female 4, para 3, SAB 1 with suspected PID based on CDC criteria. According to the CDC criteria, I will admit the patient du e to a temperature of 101 and began cefoxitin and Flagyl IV. Zithromax 1 gram dose cover the patient for 72 hours. If she is still admitted within 72 hours, we will re-administer Zithromax at that dmitry e. PLAN: 1. She is nonsurgical and in no acute distress. 2. We will admit for antibiotic therapy, once again that is IV cefoxitin and Flagyl with Zithromax 1 gram p.o. given in the emergency department.
[2017-12-28] MEDS: Acetaminophen/Codeine 30-300mg Tablet PO PRN ×3 (01:05→23:58)
[2017-12-28] MEDS: Lactated Ringer's 1,000 ML IV SCH ×4 (01:34→20:36)
[2017-12-28] MEDS: cefOXitin 2 GM in Sodium Chloride 0.9% 100 ML IVPB SCH ×3 (01:40→18:05)
[2017-12-28] MEDS: metroNIDAZOLE 500 MG in Premix Bag 1 BAG IVPB SCH ×5 (03:12→20:34)
--- NOTE | 2017-12-28 07:39 | PDOC.EVN ---
Event Note - Event Note Event Note: S: Patient had pain control issues overnight but improved with addition of Tylenol #3. Continues to complain of abdominal pain. Has not gotten up to use restroom yet this morning. Denies any other issues. O: Afebrile, Tmax 100.4 (12/27 at 1937), VSS Gen - AAO, NAD Chest - nonlabored Abd - diffusely tender, voluntary guarding, no rebound or masses palpable. Ext - no edema TSH - 0.1102 Free T4 - 0.84 A/P: 37 y/o admitted for PID, HD 1. 1. Antibiotics - Cefoxitin, Flagyl and s/p Zithromax (Next dose would be due ). Afebrile overnight. Pain minimally improved. 2. GC/CT pending 3. VP3 positive for gardnerella and naga - on flagyl. One dose of Diflucan ordered 4. Continue current management.
[2017-12-28] MEDS ORDERED: Fluconazole 100 MG TAB PO ONE (07:42)
[2017-12-28] MEDS: Ibuprofen 800 MG TAB PO PRN (10:08)
[2017-12-28] MEDS: Sodium Chloride 0.9% 500 ML IV SCH (20:35)
[2017-12-28] MEDS: Ondansetron HCl/PF 4 MG/2 ML Vial IVP PRN (22:49)
[2017-12-29] MEDS: cefOXitin 2 GM in Sodium Chloride 0.9% 100 ML IVPB SCH ×3 (01:30→18:05)
[2017-12-29] MEDS: metroNIDAZOLE 500 MG in Premix Bag 1 BAG IVPB SCH ×4 (03:01→22:16)
[2017-12-29] MEDS: Ibuprofen 800 MG TAB PO PRN (06:10)
--- NOTE | 2017-12-29 07:44 | PRG ---
DATE OF SERVICE: 12/29/2017 HISTORY OF PRESENT ILLNESS: The patient is a 37-year-old female hospital day #3, admitted for PID. The patient is currently on cefoxitin, Zithromax and Flagyl. She reports that her pain is improving as compared to the date of admission. PHYSICAL EXAMINATION: VITAL SIGNS: Her T-max last night was 100.0 down from 100.4 the night before. Most recent vital si gns; blood pressure is 95/50, temperature 98.7, pulse is 76, respiratory rate of 20. GENERAL: She appears to be in no acute distress. She is alert and oriented, cooperative and pleasan t to interact with. HEENT: Head is normocephalic, atraumatic. ABDOMEN: Soft with tenderness on that left side. Moderate in intensity. The patient reports some i mprovement since date of admission. ASSESSMENT AND PLAN: The patient is a 37-year-old female with pelvic inflammatory disease on cefoxit in, Zithromax and Flagyl now for 2 days. We will continue IV antibiotics until she has been afebrile at least 2-3 days given a recent admission for the same problem.
[2017-12-29] MEDS: Lactated Ringer's 1,000 ML IV SCH ×3 (08:18→18:04)
[2017-12-29] MEDS ORDERED: Sodium Chloride 0.9% 10 ML ONE (08:26)
[2017-12-29] MEDS: Ondansetron HCl/PF 4 MG/2 ML Vial IVP PRN (14:57)
--- NOTE | 2017-12-29 20:14 | PDOC.EVN ---
Event Note - Event Note Event Note: rn call center lab check: TSH o.11 but free T4 normal at 0.84...DX Subclinical hyperthyroid...no need for RX at this time.
[2017-12-29] MEDS: Acetaminophen/Codeine 30-300mg Tablet PO PRN (22:17)
[2017-12-29] MEDS: Sodium Chloride 0.9% 500 ML IV SCH (22:21)
[2017-12-30] MEDS: cefOXitin 2 GM in Sodium Chloride 0.9% 100 ML IVPB SCH ×3 (02:49→18:54)
[2017-12-30] MEDS: metroNIDAZOLE 500 MG in Premix Bag 1 BAG IVPB SCH ×4 (02:51→22:18)
[2017-12-30] MEDS: Lactated Ringer's 1,000 ML IV SCH ×3 (02:54→18:58)
--- NOTE | 2017-12-30 03:28 | PDOC.EVN ---
Event Note - Event Note Event Note: Admitted 08/27 This is HD #3 Suspected DX: PID On Cefoxitin and flagyl (s/p Zmax 08/27) S. States she is feeling better, no GI issues, no N/V O. Tmax was 100.0 on 12/28 at 2350 Tmax was 100.8 on 12/29 at 2350 GC and CHL PCR pending Physical: NAD Abdominal exam non acute Assessment/Plan: Presumptive DX of PID on admit...on 72 hrs on antibiotics 1. redose oral zmax 1 gram today 2. continue IV ABX 3. await GC/chl 4. if not afebrile in this 24 hour period, consider reimaging. No evidence surgical issue at this time
[2017-12-30] MEDS ORDERED: Azithromycin 250 MG TAB PO SCH (09:00)
[2017-12-30] MEDS: Acetaminophen/Codeine 30-300mg Tablet PO PRN (12:20)
[2017-12-30 13:30] LABS: Chlamydia by PCR Not Detected (NotDetected)
[2017-12-30 13:31] LABS: GC by PCR Not Detected (NotDetected)
[2017-12-31] MEDS: cefOXitin 2 GM in Sodium Chloride 0.9% 100 ML IVPB SCH ×2 (02:03→10:14)
[2017-12-31] MEDS: Lactated Ringer's 1,000 ML IV SCH ×2 (03:58→11:21)
[2017-12-31] MEDS: metroNIDAZOLE 500 MG in Premix Bag 1 BAG IVPB SCH ×2 (04:33→11:20)
--- NOTE | 2017-12-31 09:14 | PDOC.EVN ---
Event Note - Event Note Event Note: Admitted 12/27/17 Antibiotic Day 3-4 today S. Feels better O. Last Tmax was 100.5 yesterday 12/30/17 at 1144...none since Labs: GC and Chl returned negative Abd: non acute Assessment and plan: Traeting for PID based on initial exam: 1. if afebrile by 12 noon today (24 hours), consider PM dsch today. 2. Continue ABX for now Has RX in chart for doxy and flagyl for additional 5 days of care Will need outpatient OBGYN follow up
--- NOTE | 2017-12-31 11:51 | PDOC.EVN ---
Event Note - Event Note Event Note: DISCHARGE NOTE: Patient admitted 12/27/17 Discharge: 12/31/17 DX: Suspected PID Location 1982 Course: This patient was admitted by me on 12/27/17 from the ER due to left lower pelvic pain and exam suspicious for PID. Staterd on Zmax and Cefoxitin and Flagyl. Zmax given po in ED and redosed at 1 gram orally 3 days later. GC and CHL returned negative. Sono with persistent left small adnexal cyst/mass c/w resolved TOA (possible) from Jul. I evaluated the patient at bedside on the am of discharge and found her clinically improved. Discharged home on oral Doxy and Flagyl for 5 more days. F/U [facility] in 2 weeks
[2017-12-31 12:04] VITALS: BP 90/56; TEMP 98.5
== END 2017-12-31 14:17 | disposition home or self-care (01) | DRG 759 ==
LOC: ERS 12:03 → OBSVTOIN 19:34 → 3SE 19:34 → SURG A 12-29 17:29
PROVIDERS: ADMIT Obstetrics & Gynecology; ATTEND Obstetrics & Gynecology
DX: N73.9 Female pelvic inflammatory disease, unspecified (principal); J45.909 Unspecified asthma, uncomplicated; L30.9 Dermatitis, unspecified; F17.210 Nicotine dependence, cigarettes, uncomplicated; B37.9 Candidiasis, unspecified; E03.9 Hypothyroidism, unspecified; N83.209 Unspecified ovarian cyst, unspecified side; F41.9 Anxiety disorder, unspecified; F32.9 Major depressive disorder, single episode, unspecified; F41.0 Panic disorder [episodic paroxysmal anxiety]; N70.03 Acute salpingitis and oophoritis
CPT/HCPCS: 36415; 74177; 76856; 80048; 80076; 81003; 81015; 81025; 83690; 84439; 84443; 85025; 87480; 87491; 87510; 87591; 87660; 96361; 96365; 96375; A4216; J0694; J2270; J2405; J7050

== ENCOUNTER 2018-02-20 11:56 | Emergency (ER) | payer OTHER ==
--- NOTE | 2018-02-20 13:30 | RAD ---
PORTABLE CHEST: Date: 02-20-18 Provided Clinical History: Right sided chest pain. FINDINGS: Comparison 06-07-13 Cardiac and mediastinal silhouette is within normal limits. Lungs appear clear. No pleural fluid or p neumothorax apparent. IMPRESSION: No evidence for an acute cardiopulmonary process. POS: NAH
== END 2018-02-20 13:18 | disposition home or self-care (01) ==
LOC: ERS 11:56
DX: R07.9 Chest pain, unspecified (principal); E05.90 Thyrotoxicosis, unspecified without thyrotoxic crisis or storm; G43.909 Migraine, unspecified, not intractable, without status migrainosus; J45.909 Unspecified asthma, uncomplicated; I95.9 Hypotension, unspecified; F41.9 Anxiety disorder, unspecified; F31.9 Bipolar disorder, unspecified; F17.210 Nicotine dependence, cigarettes, uncomplicated; Z79.899 Other long term (current) drug therapy
CPT/HCPCS: 71045; 93005

== ENCOUNTER 2018-03-06 04:13 | Emergency (ER) | payer OTHER ==
[2018-03-06 04:44] LABS: Hemoglobin 11.5 g/dL (12.0-16.0); Mean Corpuscular HGB CONC 32.6 g/dL (32.0-36.0); Mean Corpuscular Hemoglobin 28.4 pg (27.0-31.0); Mean Corpuscular Volume 87.1 fL (78.0-98.0); Mean Platelet Volume 7.4 fL (7.4-10.4); Platelet Count 364 thou/uL (130-400); RBC Distribution Width 12.9 % (11.5-14.5); Red Blood Cell (RBC) Count 4.04 mill/uL (4.20-5.40); White Blood Cell (WBC) Count 4.8 thou/uL (4.8-10.8)
[2018-03-06 04:52] LABS: ALT (SGPT) 10 U/L (8-55); AST (SGOT) 23 U/L (5-34); Albumin 3.8 g/dL (3.5-5.0); Alkaline Phosphatase 75 U/L (40-150); Anion Gap 11 mmol/L (10-20); BUN (Urea Nitrogen) 4 mg/dL (7.0-18.7); Bilirubin, Total 0.5 mg/dL (0.2-1.2); CK (CPK) 97 U/L (29-168); Calc. Creatinine Clearance 0 mL/min (70-130); Calcium 8.9 mg/dL (7.8-10.44); Carbon Dioxide 24 mmol/L (22-29); Chloride 104 mmol/L (98-107); Estimated GFR-MDRD Greater than 90; Glucose 92 mg/dL (70-105); Potassium 3.2 mmol/L (3.5-5.1); Protein, Total 6.8 g/dL (6.0-8.3); Sodium 136 mmol/L (136-145)
[2018-03-06 04:56] LABS: Band 1 % (5-11); Lymphocytes 72 % (21-51); MDiff Complete? YES; Monocytes 9 % (0-10); Neutrophil 18 % (42-75); PLT Morphology Comment Appears Adequate; Troponin I Less than 0.010 ng/mL (< 0.028)
[2018-03-06] MEDS ORDERED: predniSONE 20 MG TAB ONE (05:37)
--- NOTE | 2018-03-06 07:38 | RAD ---
PA AND LATERAL CHEST: Date: 03/06/18 INDICATION: Shortness of breath. COMPARISON: Prior study dated 02/07/16. FINDINGS: The lungs are clear. Cardiomediastinal silhouette is within normal limits. No acute osseous abnormali ty is evident. IMPRESSION: No acute cardiopulmonary abnormality. POS: BH
== END 2018-03-06 06:11 | disposition home or self-care (01) ==
LOC: ERS 04:13
DX: J45.901 Unspecified asthma with (acute) exacerbation (principal); Z71.6 Tobacco abuse counseling; E05.90 Thyrotoxicosis, unspecified without thyrotoxic crisis or storm; G43.909 Migraine, unspecified, not intractable, without status migrainosus; I95.9 Hypotension, unspecified; F31.9 Bipolar disorder, unspecified; F41.9 Anxiety disorder, unspecified; F17.210 Nicotine dependence, cigarettes, uncomplicated; Z79.899 Other long term (current) drug therapy
CPT/HCPCS: 36415; 71046; 80053; 82553; 84484; 85025; 93005; 94640; 94760; 99406; J7506; J7620

== ENCOUNTER 2018-04-03 07:46 | Emergency (ER) | payer OTHER ==
[2018-04-03 08:23] LABS: Bilirubin Negative (Negative); Blood, Urine Large (Negative); Clarity TURBID (Clear); Glucose, Urine (Dipstick) Negative (Negative); Leukocyte Large (Negative); Nitrite Positive (Negative); Protein, Urine (Dipstick) 100 mg/dL (Neg-Trace); Specific Gravity, Urine 1.016 (1.002-1.036); Urobilinogen 0.2 mg/dL (0.2-1.0); pH, Urine 7.5 (5.0-9.0)
[2018-04-03 08:24] LABS: Pregnancy Test - Urine (BHCG) Negative (Negative); Pregu Control Background? CLEAR/WHITE (CLR/WHITE); Pregu Control Bar Appear? YES (CONTROL BAR); Specific Gravity 1.016 (1.002-1.036)
[2018-04-03 08:26] LABS: Bacteria/HPF 4+ HPF (None Seen)
[2018-04-03 08:28] LABS: Pathc Cast-AUWi Flag 2.71 (0-2.49)
[2018-04-03 08:36] LABS: Transitional Epithelial 0-3 HPF (0-3); Yeast-All Forms None Seen HPF (None Seen)
== END 2018-04-03 09:41 | disposition home or self-care (01) ==
LOC: ERS 07:46
DX: N39.0 Urinary tract infection, site not specified (principal); J45.901 Unspecified asthma with (acute) exacerbation; E05.90 Thyrotoxicosis, unspecified without thyrotoxic crisis or storm; G43.909 Migraine, unspecified, not intractable, without status migrainosus; I49.9 Cardiac arrhythmia, unspecified; I95.9 Hypotension, unspecified; J45.909 Unspecified asthma, uncomplicated; F31.9 Bipolar disorder, unspecified; F17.210 Nicotine dependence, cigarettes, uncomplicated; Z79.899 Other long term (current) drug therapy
CPT/HCPCS: 81003; 81015; 81025; 87077; 87086; 87186; 99284

== ENCOUNTER 2018-06-14 15:25 | Emergency (ER) | payer OTHER | END 2018-06-14 16:04 | disposition home or self-care (01) | LOC: ERS 15:25 | DX: S76.911A Strain of unspecified muscles, fascia and tendons at thigh level, right thigh, initial encounter (principal); E05.90 Thyrotoxicosis, unspecified without thyrotoxic crisis or storm; G43.909 Migraine, unspecified, not intractable, without status migrainosus; J45.909 Unspecified asthma, uncomplicated; I95.9 Hypotension, unspecified; F41.9 Anxiety disorder, unspecified; F31.9 Bipolar disorder, unspecified; F17.210 Nicotine dependence, cigarettes, uncomplicated; Z79.899 Other long term (current) drug therapy; Z79.51 Long term (current) use of inhaled steroids; X58.XXXA Exposure to other specified factors, initial encounter | CPT/HCPCS: 99283 ==

== ENCOUNTER 2018-10-17 08:24 | Emergency (ER) | payer OTHER | END 2018-10-17 09:36 | disposition home or self-care (01) | LOC: ERS 08:24 | DX: M79.604 Pain in right leg (principal); M79.605 Pain in left leg; Z71.6 Tobacco abuse counseling; E05.90 Thyrotoxicosis, unspecified without thyrotoxic crisis or storm; G43.909 Migraine, unspecified, not intractable, without status migrainosus; J45.909 Unspecified asthma, uncomplicated; I95.9 Hypotension, unspecified; F41.9 Anxiety disorder, unspecified; F31.9 Bipolar disorder, unspecified; F17.210 Nicotine dependence, cigarettes, uncomplicated; Z79.51 Long term (current) use of inhaled steroids; Z79.899 Other long term (current) drug therapy | CPT/HCPCS: 99406 ==

== ENCOUNTER 2018-11-27 23:44 | Emergency (ER) | payer OTHER ==
[2018-11-28 00:43] LABS: #Basophils 0.1 thou/uL (0.0-0.2); #Eosinphils 0.1 thou/uL (0.0-0.7); #Monocytes 0.7 thou/uL (0.11-0.59); #Neutrophils 4.9 thou/uL (1.40-6.50); %Basophils 0.8 % (0.0-1.0); %Eosinophils 0.7 % (0.0-10.0); %Lymphocytes 34.2 % (21.0-51.0); %Monocytes 7.5 % (0.0-10.0); %Neutrophils 56.9 % (42.0-75.0); Hemoglobin 10.8 g/dL (12.0-16.0); Mean Corpuscular HGB CONC 32.6 g/dL (32.0-36.0); Mean Corpuscular Hemoglobin 28.3 pg (27.0-31.0); Mean Corpuscular Volume 86.9 fL (78.0-98.0); Mean Platelet Volume 7.1 fL (7.4-10.4); Platelet Count 351 thou/uL (130-400); Red Blood Cell (RBC) Count 3.81 mill/uL (4.20-5.40); White Blood Cell (WBC) Count 8.7 thou/uL (4.8-10.8)
[2018-11-28 00:56] LABS: Bilirubin Negative (Negative); Blood, Urine Moderate (Negative); Clarity CLEAR (Clear); Glucose, Urine (Dipstick) Negative (Negative); Leukocyte Negative (Negative); Nitrite Negative (Negative); Pregnancy Test - Urine (BHCG) Negative (Negative); Pregu Control Background? CLEAR/WHITE (CLR/WHITE); Pregu Control Bar Appear? YES (CONTROL BAR); Protein, Urine (Dipstick) Negative (Neg-Trace); Specific Gravity 1.009 (1.002-1.036); Specific Gravity, Urine 1.009 (1.002-1.036); Urobilinogen 0.2 mg/dL (0.2-1.0)
[2018-11-28 00:59] LABS: Bacteria/HPF None Seen HPF (None Seen); Hyaline Casts/LPF 0-3 HYALINE CAST LPF (0-3 Hyaline); Squamous Epithelial 0-3 HPF (0-3); WBC/HPF 0-3 HPF (0-3)
[2018-11-28 01:04] LABS: ALT (SGPT) 9 U/L (8-55); AST (SGOT) 14 U/L (5-34); Albumin 4.1 g/dL (3.5-5.0); Alkaline Phosphatase 75 U/L (40-150); Anion Gap 8 mmol/L (10-20); BUN (Urea Nitrogen) 8 mg/dL (7.0-18.7); Bilirubin, Total 0.5 mg/dL (0.2-1.2); Calc. Creatinine Clearance 0 mL/min (70-130); Calcium 9.5 mg/dL (7.8-10.44); Carbon Dioxide 30 mmol/L (22-29); Chloride 100 mmol/L (98-107); Estimated GFR-MDRD Greater than 90; Globulin 3.2 g/dL (2.4-3.5); Glucose 83 mg/dL (70-105); Lipase 15 U/L (8-78); Potassium 3.4 mmol/L (3.5-5.1); Protein, Total 7.3 g/dL (6.0-8.3); Sodium 135 mmol/L (136-145)
[2018-11-28] MEDS ORDERED: Ketorolac Tromethamine 30 MG/ML VIAL ONE (01:42)
--- NOTE | 2018-11-28 06:32 | ULT ---
PELVIC ULTRASOUND WITH GRAYSCALE AND DOPPLER COLORFLOW IMAGING: CLINICAL HISTORY: Left lower abdominal pain. COMPARISON: Reference made to a CT scan from earlier the same day. FINDINGS: There are bilateral adnexal cystic structures present, and there is mild to moderate free pelvic flui d. Within the left adnexal region, there is a tubular area of complex echotexture, for which the pos sibility of a dilated fallopian tube is not excluded. Adjacent soft tissue with flow is seen, some o f which may be related to the adnexal structures. There is also complex echotexture adjacent to the lower uterine segment, which indicates complex fluid within the endocervical canal. Immediately turner cent to this region there is a traversing tubular, predominantly hypoechoic to anechoic region. Dopp ler evaluation does reveal flow to each ovary. IMPRESSION: Prominent cystic regions at each adnexa, with a sizable region of tubular decreased echogenicity nima ersing the left adnexal region and along the midline of the pelvis, near the lower uterine segment. The possibility of hydrosalpinx/pyosalpinx should be excluded clinically. There is mild to moderate associated free pelvic fluid, as well as complex fluid echotexture of the endocervical canal. Contin ued short-term imaging followup is also recommended. CODE T POS: SHMUEL
[2018-11-28] MEDS ORDERED: cefTRIAXone\\ROCEPHIN 250 MG VIAL ONE (07:34)
[2018-11-28] MEDS ORDERED: Lidocaine 1% PF 5 ML VIAL ONE (07:34)
[2018-11-28] MEDS ORDERED: Azithromycin 250 MG TAB ONE (07:52)
--- NOTE | 2018-11-28 07:53 | CT ---
PRELIMINARY REPORT/[facility]/EMERGENCY AFTER HOURS PROCEDURE: EXAM: CT Abdomen and Pelvis With Contrast EXAM DATE/TIME: 11/28/2018 1:39 AM CLINICAL HISTORY: 37 years old, female; Abdominal pain; Localized; Left lower quadrant (llq); Patient HX: Er 5. 37yof p resents with worsening llq pain x 3 days. First noticed it at work. States it is constant and nonradi ating. Feels it in left flank and llq TECHNIQUE: Imaging protocol: Axial computed tomography images of the abdomen and pelvis with intravenous contras t. COMPARISON: No relevant prior studies available. FINDINGS: ABDOMEN: Liver: 11 mm and 15 mm hypodense foci with minimal peripheral enhancement within the posterior right hepatic lobe, likely hemangiomas, but not definitively characterized on this study. Gallbladder and bile ducts: Normal. Pancreas: Normal. Spleen: Normal. Adrenals: Normal. Kidneys and ureters: Normal. Stomach and bowel: Normal. Appendix: Appendix normal. PELVIS: Bladder: Unremarkable as visualized. Reproductive: 4.6 x 3.1 cm cystic structure within the left adnexa, likely left ovarian cyst. 2.3 cm cystic structure within the right adnexa, likely right ovarian cyst. ABDOMEN and PELVIS: Intraperitoneal space: Normal. No free air. No significant fluid collection. Bones/joints: No acute abnormality. Soft tissues: Normal. Vasculature: Normal. No abdominal aortic aneurysm. Lymph nodes: Normal. No enlarged lymph nodes. IMPRESSION: 1. No acute abdominal or pelvic abnormality. 2. 4.6 x 3.1 cm cystic structure within the left adnexa, likely left ovarian cyst. Thank you for allowing us to participate in the care of your patient. Dictated and Authenticated by: Luis F Pendleton MD 11/28/2018 3:21 AM Central Time ([place] & [place]) FINAL REPORT CT ABDOMEN AND PELVIS WITH IV CONTRAST: DATE: 11/28/2018. TIME: Performed on an emergency basis at 041 hours. HISTORY: Abdomen and pelvis pain. Left lower quadrant. FINDINGS: Agree with the preliminary report by Dr. Pendleton from [facility]. Large left ovarian cyst. Fl uid distention of the endometrial cavity. Moderate amount of free fluid within the cul-de-sac at the pelvis. lease see report for subsequently performed pelvic sonogram.
[2018-11-28 17:59] LABS: Chlamydia by PCR Not Detected (NotDetected); GC by PCR Not Detected (NotDetected)
== END 2018-11-28 08:18 | disposition home or self-care (01) ==
LOC: ERS 23:44
DX: N83.202 Unspecified ovarian cyst, left side (principal); N83.201 Unspecified ovarian cyst, right side; N73.9 Female pelvic inflammatory disease, unspecified; E05.90 Thyrotoxicosis, unspecified without thyrotoxic crisis or storm; G43.909 Migraine, unspecified, not intractable, without status migrainosus; J45.909 Unspecified asthma, uncomplicated; I95.9 Hypotension, unspecified; F41.9 Anxiety disorder, unspecified; F31.9 Bipolar disorder, unspecified; F17.210 Nicotine dependence, cigarettes, uncomplicated; Z79.51 Long term (current) use of inhaled steroids; Z79.899 Other long term (current) drug therapy
CPT/HCPCS: 36415; 74177; 76856; 80053; 81003; 81015; 81025; 83690; 85025; 87480; 87491; 87510; 87591; 87660; 94640; 96372; 96374; J0696; J1885; J2001; J7620

== ENCOUNTER 2019-04-09 09:05 | Emergency (ER) | payer OTHER, SELFPAY ==
--- NOTE | 2019-04-09 10:25 | RAD ---
EXAM: Chest PA and lateral: HISTORY: Cough COMPARISON: 03/06/2018 FINDINGS: Heart: Normal cardiac silhouette Aorta: Unremarkable Pulmonary vessels: Normal Costophrenic angles: Costophrenic angles are clear. Lungs: No consolidation or masses. Pneumothorax: No pneumothorax Osseous structures: No osseous abnormalities IMPRESSION: No acute cardiopulmonary process.
== END 2019-04-09 12:15 | disposition home or self-care (01) ==
LOC: ERS 09:05
DX: R05 Cough (principal); I49.9 Cardiac arrhythmia, unspecified; E05.90 Thyrotoxicosis, unspecified without thyrotoxic crisis or storm; G43.909 Migraine, unspecified, not intractable, without status migrainosus; J45.909 Unspecified asthma, uncomplicated; F41.9 Anxiety disorder, unspecified; F31.9 Bipolar disorder, unspecified; F17.210 Nicotine dependence, cigarettes, uncomplicated; Z79.899 Other long term (current) drug therapy; Z79.51 Long term (current) use of inhaled steroids
CPT/HCPCS: 71046; 87804

== ENCOUNTER 2019-11-17 12:20 | Emergency (ER) | payer SELFPAY ==
[2019-11-17] MEDS ORDERED: Ketorolac Tromethamine 30 MG/ML VIAL ONE (12:33)
--- NOTE | 2019-11-17 13:36 | RAD ---
RIGHT SHOULDER THREE VIEWS: History: Shoulder pain from injury. FINDINGS: No evidence of fracture or dislocation. AC joint normally aligned. IMPRESSION: No acute abnormality identified. POS: AGW
[2019-11-17] MEDS ORDERED: HYDROcodone/Acetaminophen 5/325 mg Tablet ONE (14:33)
--- NOTE | 2019-11-17 16:21 | RAD ---
TWO VIEWS CHEST: Date: 11-17-2019 Comparison: 04-09-19 History: Trauma FINDINGS: Lungs are clear. Heart and mediastinal contours appear unremarkable. IMPRESSION: No acute findings. POS: [facility]
== END 2019-11-17 16:38 | disposition home or self-care (01) ==
LOC: ERS 12:20
DX: S46.911A Strain of unspecified muscle, fascia and tendon at shoulder and upper arm level, right arm, initial encounter (principal); R07.89 Other chest pain; E05.90 Thyrotoxicosis, unspecified without thyrotoxic crisis or storm; J45.909 Unspecified asthma, uncomplicated; F31.9 Bipolar disorder, unspecified; F41.9 Anxiety disorder, unspecified; F17.210 Nicotine dependence, cigarettes, uncomplicated; Z79.51 Long term (current) use of inhaled steroids; Z79.899 Other long term (current) drug therapy; W50.0XXA Accidental hit or strike by another person, initial encounter
CPT/HCPCS: 71046; 96372; J1885

== ENCOUNTER 2021-12-16 13:16 | Emergency (ER) | payer SELFPAY ==
[2021-12-16 13:43] LABS: #Lymphocytes 1.5 thou/uL (1.20-3.40); #Monocytes 0.9 thou/uL (0.11-0.59); #Neutrophils 9.2 thou/uL (1.40-6.50); %Basophils 0.4 % (0.0-1.0); %Eosinophils 0.1 % (0.0-10.0); %Lymphocytes 13.1 % (21.0-51.0); %Monocytes 7.8 % (0.0-10.0); %Neutrophils 78.6 % (42.0-75.0); Hemoglobin 11.3 g/dL (12.0-16.0); Mean Corpuscular HGB CONC 31.9 g/dL (32.0-36.0); Mean Corpuscular Hemoglobin 26.2 pg (27.0-31.0); Mean Corpuscular Volume 82.4 fL (78.0-98.0); Mean Platelet Volume 7.6 fL (7.4-10.4); Platelet Count 313 thou/uL (130-400); RBC Distribution Width 14.7 % (11.5-14.5); Red Blood Cell (RBC) Count 4.32 mill/uL (4.20-5.40); White Blood Cell (WBC) Count 11.7 thou/uL (4.8-10.8)
[2021-12-16 13:50] LABS: BHCG - Serum Negative (NEGATIVE); Pregs Control Background? CLEAR/WHITE (CLR/WHITE); Pregs Control Bar Appear? YES (CONTROL BAR)
[2021-12-16 14:10] LABS: ALT (SGPT) 7 U/L (8-55); AST (SGOT) 12 U/L (5-34); Alkaline Phosphatase 66 U/L (40-110); Anion Gap 13 mmol/L (10-20); BUN (Urea Nitrogen) 6 mg/dL (7.0-18.7); Bilirubin, Total 1.1 mg/dL (0.2-1.2); Calc. Creatinine Clearance 0 mL/min (70-130); Calcium 9.4 mg/dL (7.8-10.44); Carbon Dioxide 28 mmol/L (22-29); Chloride 98 mmol/L (98-107); Estimated GFR 107; Globulin 3.9 g/dL (2.4-3.5); Glucose 130 mg/dL (70-105); Lipase 6 U/L (8-78); Potassium 3.9 mmol/L (3.5-5.1); Protein, Total 7.9 g/dL (6.0-8.3); Sodium 135 mmol/L (136-145)
[2021-12-16 16:26] LABS: Clarity Hazy (Clear)
[2021-12-16 16:27] LABS: Bilirubin Unable to Interpret (Negative); Blood, Urine Unable to Interpret (Negative); Glucose, Urine (Dipstick) Unable to Interpret mg/dL (Negative); Ketone, Urine Unable to Interpret mg/dL (Negative); Leukocyte Unable to Interpret Leu/uL (Negative); Nitrite Unable to Interpret (Negative); Protein, Urine (Dipstick) Unable to Interpret mg/dL (Neg-Trace); Specific Gravity, Urine 1.029 (1.002-1.036); Urobilinogen UNABLE TO INTERPRET mg/dL (Less than 2); pH, Urine 6.3 (5.0-9.0)
[2021-12-16 16:28] LABS: Bacteria/HPF Rare-Few HPF (None Seen); RBC/HPF Greater than 50 HPF (0-3)
[2021-12-16] MEDS ORDERED: Acetaminophen 500 MG TAB ONE (18:06)
[2021-12-16] MEDS ORDERED: Ketorolac Tromethamine 30 MG/ML VIAL ONE (18:06)
[2021-12-17 17:14] LABS: Chlamydia by PCR Not Detected (NotDetected)
[2021-12-17 17:42] LABS: GC by PCR Not Detected (NotDetected)
== END 2021-12-16 20:47 | disposition home or self-care (01) ==
LOC: ERS 13:16
DX: N73.9 Female pelvic inflammatory disease, unspecified (principal); R10.30 Lower abdominal pain, unspecified; Z87.891 Personal history of nicotine dependence; I95.9 Hypotension, unspecified; Z79.899 Other long term (current) drug therapy
CPT/HCPCS: 36415; 74177; 76856; 80053; 81003; 81015; 83690; 84703; 85025; 87480; 87491; 87510; 87591; 87660; 96374; J1885; Q9966

== ENCOUNTER 2022-01-17 17:47 | Emergency (ER) | payer SELFPAY | END 2022-01-17 20:50 | disposition left against medical advice (07) | LOC: ERS 17:47 | DX: Z53.21 Procedure and treatment not carried out due to patient leaving prior to being seen by health care provider (principal) ==

== ENCOUNTER 2023-08-08 15:17 | Emergency (ER) | payer OTHER ==
[2023-08-08] MEDS ORDERED: LORazepam 2 MG/ML SYR.(CARPUJECT) ONE (15:50)
[2023-08-08 16:16] LABS: #Monocytes 0.6 thou/uL (0.11-0.59); #Neutrophils 6.8 thou/uL (1.40-6.50); %Basophils 0.2 % (0.0-1.0); %Eosinophils 0.1 % (0.0-10.0); %Lymphocytes 7.7 % (21.0-51.0); %Monocytes 7.4 % (0.0-10.0); %Neutrophils 84.4 % (42.0-75.0); Hematocrit 38.3 % (36.0-47.0); Hemoglobin 13.5 g/dL (12.0-16.0); Mean Corpuscular HGB CONC 35.2 g/dL (32.0-36.0); Mean Corpuscular Volume 87.8 fl (78.0-98.0); Mean Platelet Volume 10.4 fL (7.4-10.4); Platelet Count 282 10x3/uL (130-400); RBC Distribution Width 12.2 % (11.5-14.5); Red Blood Cell (RBC) Count 4.36 mill/uL (4.20-5.40)
[2023-08-08 16:28] LABS: BHCG - Serum Negative (NEGATIVE); Pregs Control Background? CLEAR/WHITE (CLR/WHITE); Pregs Control Bar Appear? YES (CONTROL BAR)
[2023-08-08 16:39] LABS: Troponin I Less than 0.010 ng/mL (< 0.028)
[2023-08-08 16:40] LABS: Acetaminophen Less than 10 mcg/mL (10.0-30.0); Alcohol Less than 10.0 mg/dL (Less than 10); Salicylate Less than 8.0 mg/dL (15.0-30.0)
[2023-08-08 16:44] LABS: ALT (SGPT) 7 U/L (8-55); AST (SGOT) 16 U/L (5-34); Albumin 4.5 g/dL (3.5-5.0); Alkaline Phosphatase 66 U/L (40-110); Anion Gap 17 mmol/L (10-20); BUN (Urea Nitrogen) 7 mg/dL (7.0-18.7); Bilirubin, Total 1.1 mg/dL (0.2-1.2); CK (CPK) 75 U/L (29-168); Calc. Creatinine Clearance 0 mL/min (70-130); Calcium 9.4 mg/dL (7.8-10.44); Carbon Dioxide 19 mmol/L (22-29); Chloride 100 mmol/L (98-107); Estimated GFR 96; Globulin 3.3 g/dL (2.4-3.5); Glucose 68 mg/dL (70-105); Lipase 15 U/L (8-78); Potassium 3.5 mmol/L (3.5-5.1); Protein, Total 7.8 g/dL (6.0-8.3); Sodium 132 mmol/L (136-145)
[2023-08-08 16:53] LABS: Bacteria/HPF None Seen HPF (None Seen); Bilirubin Negative (Negative); Blood, Urine Negative (Negative); CAUTI Indications for Culture Dysuria,urgency,freq; Clarity Clear (Clear); Glucose, Urine (Dipstick) Normal (Negative); Ketone, Urine Negative (Negative); Leukocyte Negative Leu/uL (Negative); Nitrite Negative (Negative); Protein, Urine (Dipstick) Negative (Neg-Trace); RBC/HPF 0-3 HPF (0-3); Specific Gravity, Urine 1.006 (1.002-1.036); Squamous Epithelial 0-3 HPF (0-3); Urobilinogen Normal mg/dL (Less than 2); WBC/HPF 0-3 HPF (0-3)
[2023-08-08 16:54] LABS: Pregnancy Test - Urine (BHCG) Negative (Negative); Pregu Control Background? CLEAR/WHITE (CLR/WHITE); Pregu Control Bar Appear? YES (CONTROL BAR); Specific Gravity 1.006 (1.002-1.036); Urine Culture Reflex No No
[2023-08-08 17:00] LABS: Amphetamine Not Detected (NotDetected); Barbiturates Screen Not Detected (NotDetected); Benzodiazepine Screen Not Detected (NotDetected); Cocaine Metabolite Screen Not Detected (NotDetected); Methadone Not Detected (NotDetected); Methamphetamine Not Detected (NotDetected); Opiate Screen Not Detected (NotDetected); Oxycodone Screen Not Detected (NotDetected); Phencyclidine (PCP) Not Detected (NotDetected); THC/Cannabinoid Screen Not Detected (NotDetected); Tricyclic Screen Not Detected (NotDetected)
== END 2023-08-08 17:35 | disposition home or self-care (01) ==
LOC: ERS 15:17
DX: R07.9 Chest pain, unspecified (principal); G40.909 Epilepsy, unspecified, not intractable, without status epilepticus; J45.909 Unspecified asthma, uncomplicated; I95.9 Hypotension, unspecified; G43.909 Migraine, unspecified, not intractable, without status migrainosus; F41.9 Anxiety disorder, unspecified; F31.9 Bipolar disorder, unspecified; I48.91 Unspecified atrial fibrillation; Z86.73 Personal history of transient ischemic attack (TIA), and cerebral infarction without residual deficits; Z86.2 Personal history of diseases of the blood and blood-forming organs and certain disorders involving the immune mechanism; Z79.899 Other long term (current) drug therapy
CPT/HCPCS: 36416; 71045; 80053; 80306; 80307; 81001; 81025; 82550; 83690; 83880; 84484; 84703; 85025; 93005; 96361; 96374; J2060